=== PATIENT | female | born 1990 | race Caucasian/White ===

== ENCOUNTER → 2017-06-25 11:10 | Observation (INO) ==
[2017-06-25 10:39] LABS: Bilirubin,Urine Negative (Negative); Blood,Urine Small (Negative); Clarity,Urine Clear (Clear); Color,Urine Yellow (Yellow); Glucose,Urine (UA) Normal (Normal); Ketones,Urine Negative (Negative); Leukocyte Esterase,Urine Negative (Negative); Nitrite,Urine Negative (Negative); Protein,Urine Negative (Neg-Trace); Specific Gravity,Urine < 1.005 (1.010-1.025); Urobilinogen,Urine Normal (Normal)
[2017-06-25 10:44] LABS: Amphetamine Screen,Urine Negative ng/mL (Cutoff=1000); Barbiturate Screen,Urine Negative ng/mL (Cutoff=200); Benzodiazepines Screen,Urine Negative ng/mL (Cutoff=200); Cannabinoid Screen,Urine Negative ng/mL (Cutoff = 50); Cocaine Screen,Urine Negative ng/mL (Cutoff= 300); Opiate Screen,Urine Negative ng/mL (Cutoff=300); Phencyclidine Screen,Urine Negative ng/mL (Cutoff=25)
[2017-06-25 10:45] LABS: WBC,Urine 15-30 per hpf (0-3)
[2017-06-25 10:46] LABS: Bacteria,Urine Many per hpf (None-Few); Squamous Epithelial Cell,Urine Few per lpf (None-Few)
--- NOTE | 2017-06-25 11:13 | OB/GYN Progress Note ---
Date of Encounter: 06/25/17 Time of Encounter: 11:10 - Assessment and Plan (1) Vaginal bleeding during , antepartum Current Visit: Yes Status: Acute Patient with minimal vaginal bleeding. -Speculum exam shows minimal cervical bleeding. -Cervix is closed, thick, and high. -No evidence of membrane rupture. -Bleeding precautions given. Discharge home. FU in office. (2) 26 weeks gestation of Current Visit: Yes Status: Resolved Continue care. Subjective - Subjective Principal diagnosis: Second trimester vaginal bleeding Interval history: Ms. 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 She states she was at work, wiped, and saw a smear of blood on the toilet paper. Patient denies recent intercourse, or complications with this . Her last was a term delivery. She denies any abdominal pain, ARGUETA, visual disturbances, nausea or vomitting. She denies contractions and reports good movement. Antepartum ROS: vaginal bleeding, movement normal, no loss of fluid, no contractions Objective - Vital Signs Vital Signs: Intake and Output 06/24/17 06/25/17 06/25/17 23:59 07:59 15:59 Other: Weight 96 kg Patient Weight 06/25/17 23:59 Weight 96 kg - Exam FHR: category 1 FHR comments: Baseline FHT 140, 10x10 accelerations, moderate variability Auscultation: bilateral: normal Abdomen: Present: normal appearance, soft, gravid Uterus: Present: normal Cervical dilation: closed Cervix effacement: none station: -3 Comments: Speculum exam-minimal cervical bleeding. No fluid or discharge visualized in vagina. - Labs Labs: Abnormal lab results Ur Specific [place] < 1.005 (1.010-1.025) L 06/25/17 10:15 Urine Blood Small (Negative) H 06/25/17 10:15 Urine Microscopic RBC 3-5 per hpf (0-3) H 06/25/17 10:15 Urine Microscopic WBC 15-30 per hpf (0-3) H 06/25/17 10:15 Urine Bacteria Many per hpf (None-Few) H 06/25/17 10:15
== END | disposition home or self-care (01) ==
LOC: 1NENULAB
PROVIDERS: ADMIT Obstetrics & Gynecology; ATTEND Obstetrics & Gynecology

== ENCOUNTER 2017-09-03 18:38 | Inpatient (IN) ==
[2017-09-03] MEDS ORDERED: Famotidine 20 MG/2 ML VIAL IVP PRN (18:49)
[2017-09-03] MEDS ORDERED: Ondansetron 4 MG/2 ML VIAL IVP PRN (18:49)
[2017-09-03] MEDS ORDERED: Naloxone 0.4 MG/ML INJ IVP PRN (18:49)
[2017-09-03] MEDS ORDERED: Lidocaine 1% 20 ML MDV INFILT PRN (18:49)
--- NOTE | 2017-09-03 18:49 | OB/GYN History & Physical ---
Date of Encounter: 09/03/17 Time of Encounter: 19:40 Assessment and Plan (1) 36 weeks gestation of Current visit: Yes Status: Acute Plan: - + nitrazine test, + pooling, PPROM present - admit to L&D for induction of labor - and maternal toco - CBC and drug screen obtained - speculum exam performed and negative for herpetic lesions - Expectant management, begin induction with oral cytotec - anticipate normal (2) premature rupture of membranes (PPROM) with unknown onset of labor Current visit: Yes Status: Acute (3) History of herpes simplex type 2 infection Current visit: Yes Status: Acute History of Present Illness Chief complaint: ROM HPI: Ms. Alcantara is a 27 year old female at 36+5 weeks presented to L&D with complaints of leakage of fluids. Leakage of fluid occurred initially at 1400 today. Patient able to feel contractions. complicated by herpes simplex type 2. Patient has been taking Valtrex as scheduled without recent outbreak. Reports active movement. Patient denies vaginal bleeding. Denies N/V, changes in vision, ARGUETA. Allergy to morphine, reaction trouble breathing and hives. Patient follows up with Dr. Bates. PNL: Blood type A+, GBS neg, RI, HBsAG neg, HIV neg. RPR neg. Past Med Surg Social Fam HX - Past Medical History Source: patient, old records reviewed Medical history: non-contributory Psychiatric history: no psych history - Past Surgical History Surgical History: other (tonsillectomy, neck fusion ) - Social History Smoking Status: Never smoker Alcohol use: none Drug use: none - Family History Mother Living Status: Still Living Hx Family Cardiac Disorders: Yes (htn) Hx Family Endocrine Disorder: Yes (diabetes) Hx Family Psychosocial Disorders: Yes (depression) Obstetrical History - Pregnancies : 2 Para: 1 Term: 1 : 0 Ab's: 0 Livin - History/Complications History/Complications: Total pregnancies 2. Total living children 1. # 1: 14 39w3d,, normal spontaneous vaginal delivery (),male 7lbs 4oz bottle feeding "Lito". Medications and Allergies Vit No.124/Iron/FA [ Vitamin Tablet] 1 each PO DAILY 09/03/17 [ History] valACYclovir [Valtrex] 1,000 mg PO DAILY 09/03/17 [History] 3 Allergy/AdvReac Type Severity Reaction Status Date / Time morphine Allergy Difficulty Verified 03/28/17 06:41 Breathing propoxyphene Allergy "makes me Verified 03/28/17 06:41 [From Darvocet-N] high" sulfamethoxazole Allergy Rash Verified 03/28/17 06:41 [From Bactrim] trimethoprim [From Bactrim] Allergy Rash Verified 03/28/17 06:41 Review of System OB All systems PM: reviewed and no additional remarkable complaints except as stated Exam - Vital Signs Vital signs: wnl - Constitutional Constitutional: well developed, well nourished - HEENT HEENT: EOMI, PERRL - Neck Neck exam: full ROM - Lungs Respiratory exam: CTAB - Cardiovascular Cardiovascular exam: RRR - Abdomen Abdomen: Present: non tender - Extremities Extremities exam: normal inspection - Vulva Vulva: bilateral: normal - Vagina Vagina: Present: normal moisture, discharge (clear). Absent: ulceration - Cervix Dilation: 3 Effacement: 60 Station: -1 - Uterus Uterus exam: Present: normal size Results Result Diagrams: 09/03/17 19:00 All other labs normal. - Attending Attestation I examined this patient and my medical decision-making was reviewed with the Resident Physician. I agree with the documented findings, disposition and treatment plan as described. Koki Jain CNM
[2017-09-03] MEDS ORDERED: Ringers Solution, Lactated 1,000 ML IVC SCH (19:00)
[2017-09-03 19:13] LABS: Basophils % 0.2 %; Eosinophils # 0.1 K/mcL (0.0-0.6); Eosinophils % 0.8 %; Hematocrit 40.3 % (35.3-44.9); Hemoglobin 13.5 g/dL (11.5-15.4); Immature Granulocytes % 0.9 % (0-4); Lymphocytes # 2.5 K/mcL (0.6-4.6); Lymphocytes % 19.1 %; Mean Corpuscular HGB Conc 33.5 g/dL (31.6-35.5); Mean Corpuscular Volume 86.7 fL (83.0-100.0); Mean Platelet Volume 9.6 fL (9.4-12.4); Monocytes # 0.6 K/mcL (0.0-1.3); Monocytes % 4.5 %; Neutrophils # 9.5 K/mcL (1.6-8.9); Platelet Count 330 K/mcL (140-400); Red Blood Count 4.65 M/mcL (3.82-4.97); Red Cell Distribution Width 13.5 % (11.5-14.5); Segmented Neutrophils % 74.5 %
[2017-09-03 19:14] LABS: Bilirubin,Urine Negative (Negative); Blood,Urine Negative (Negative); Clarity,Urine Clear (Clear); Color,Urine Yellow (Yellow); Glucose,Urine (UA) Normal (Normal); Ketones,Urine Negative (Negative); Leukocyte Esterase,Urine Negative (Negative); Nitrite,Urine Negative (Negative); Protein,Urine Negative (Neg-Trace); Specific Gravity,Urine 1.005 (1.010-1.025); Urobilinogen,Urine Normal (Normal)
[2017-09-03 19:21] LABS: Amphetamine Screen,Urine Negative ng/mL (Cutoff=1000); Barbiturate Screen,Urine Negative ng/mL (Cutoff=200); Benzodiazepines Screen,Urine Negative ng/mL (Cutoff=200); Cannabinoid Screen,Urine Negative ng/mL (Cutoff = 50); Cocaine Screen,Urine Negative ng/mL (Cutoff= 300); Opiate Screen,Urine Negative ng/mL (Cutoff=300); Phencyclidine Screen,Urine Negative ng/mL (Cutoff=25)
[2017-09-03] MEDS ORDERED: *HR* FentaNYL (PF) 100 MCG/2 ML VIAL IVP PRN (20:25)
[2017-09-03] MEDS: miSOPROStol 25 MCG TABLET PO PRN (20:40)
[2017-09-04] MEDS: miSOPROStol 25 MCG TABLET PO PRN (01:14)
[2017-09-04] MEDS ORDERED: Ringers Solution, Lactated 500 ML IVC ONE (03:21)
[2017-09-04] MEDS ORDERED: EPHEDrine 50 MG/ML VIAL IVP PRN (03:22)
[2017-09-04] MEDS ORDERED: Epidural Premix (fent/bupiv) 110 ML EP ONE (03:25)
[2017-09-04] MEDS ORDERED: Epidural Premix (fent/bupiv) 110 ML EP SCH (03:30)
--- NOTE | 2017-09-04 03:59 | Anesthesia Evaluation PreOp ---
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 (neck fusion at age 15 d/t leaking fluid) Other Medical History: Denies Any Significant HX Anesthesia History: No Prior Anesthetic Complications, Past Anesthesia : Yes (36.5) Alcohol Use: none Drug use: none Medications and Allergies Vit No.124/Iron/FA [ Vitamin Tablet] 1 each PO DAILY 09/03/17 [ History] valACYclovir [Valtrex] 1,000 mg PO DAILY 09/03/17 [History] 3 Allergy/AdvReac Type Severity Reaction Status Date / Time morphine Allergy Difficulty Verified 03/28/17 06:41 Breathing propoxyphene Allergy "makes me Verified 03/28/17 06:41 [From Darvocet-N] high" sulfamethoxazole Allergy Rash Verified 03/28/17 06:41 [From Bactrim] trimethoprim [From Bactrim] Allergy Rash Verified 03/28/17 06:41 - Meds/Allergy Pre-op Review Medications Reviewed: Yes Allergies Reviewed: Yes Beta Blockers on Current Med List: No Anesthesia Results - Labs 09/03/17 19:00 Anesthesia Exam Height: 1.68m Weight: 98kg NPO (# of Hours): 6 Pain Scale: 9 Pain Scale Used: Numeric (1 - 10) - HEENT Pupil (Motor): Pupils equal Mallampati: II Teeth: Normal Oral Opening: Greater than 3 - BOBTAILER LOC: Oriented BOBTAILER Motor: Normal RUE, Normal LUE, Normal RLE, Normal LLE, Normal Face BOBTAILER Sensory: Normal: RUE, LUE, RLE, LLE, Face - Cardiac Rhythm: Regular Murmur: None JVD: No Carotid Bruit: No - Pulmonary Breath Sounds: bilateral Clear Respiratory Effort: Symmetrical Anesthesia Assess/Plan ASA Score: 2 Modified [place] Scale for Level of Consciousness: Cooperative, oriented, and tranquil Anesthetic Plan: General (plan b), Regional (plan a) Autologous Blood: Yes Monitoring Plan: Standard Monitors
[2017-09-04] MEDS ORDERED: Oxytocin 20 units/ LR 1000 mL 20 UNIT/1,000 ML BAG IVC SCH ×2 (04:00→08:23)
--- NOTE | 2017-09-04 04:02 | Anesthesia Procedures ---
Date of Encounter: 09/04/17 Time of Encounter: 04:00 Procedures: Anesthesia - Epidural/Spinal Patient ID/Chart reviewed: Yes Patient examined: Yes OB Eval: Gestational age: 36.5 OB Eval: : 2 OB Eval: Hx Para: 1 OB Eval: Dilated at (cm): 4 OB Eval: Contractions: Non-stressed pattern Consent Obtained: Yes Supplemental Oxygen: None/Room Air Site Prep: Aseptic Technique, Sterile prep and drape, Povidone-Iodine 1% Patient position: upright Local Anesthetic: Lidocaine 1% Amount of Local Anesthetic used: 3 Touhy Needle Gauge: 18 Touhy Needle Depth (cm): 9 Catheter Depth at Skin (cm): 20 Test Dose (1.5% Lido + Epi): Volume given (mls): 5 Test Dose Result: Negative Loading Dose: Other: 10mls of epidural pharm bag premix solution Loading Dose Administered: Thru Catheter Infusion Med: 0.125% Bupivacaine w/ 2 mcg/ml Fentanyl Infusion Rate (mls/hr): [address]: Tegaderm, Tape Interspace Used: L3-L4 Loss of Resistance (MARLEE): Yes Blood: No CSF: No Paresthesia: No Procedure: pt tolerated procedure well. no complications. vss. fhr stable.
--- NOTE | 2017-09-04 04:06 | OB Labor Progress Note ---
Date of Encounter: 09/04/17 Time of Encounter: 04:03 Labor Progress Note - Subjective Subjective: Patient laying in bed recovering from epidural. Still breathing through contractions. Patient c/o contractions every 10 minutes. - Vital Signs Vital Signs: VSS - Cervix Cervix: 4/90/0 - Heart Tones Heart Tones: 135 moderate variability - [place]: Contractions every 3-5 minutes - Interventions Interventions: Forebag ruptured and IUPC placed without difficulty. Fetus and patient tolerated well. - Plan Plan: Continue routine labor management GBS negative Pain control with epidural Start pitocin after 4 hours from last dose of cytotec Anticipate vaginal delivery POC per consult with Dr Morris.
--- NOTE | 2017-09-04 06:09 | OB/GYN Procedure Note ---
Delivery - Delivery Date: 09/04/17 Provider: Bree Jain Intrapartum events: none Delivery induction: none Delivery augmentation: pitocin Delivery monitor: external FHT, external uterine, internal uterine Anesthesia: epidural Estimated Blood Loss: 150 - Infant (s) Infant A Delivery Date: 09/04/17 Infant Delivery Time: 05:47 Presentation: vertex Position: WON Route of delivery: Gender: Female Viability: Viable Pounds: 6 Ounces: 5 Weight Gram: 2.88 kg at 1 minute: 9 at 5 mins: 9 Shoulder Dystocia: not encountered Placenta: spontaneous Cord: 3 umbilical vessels - Repair Episiotomy: none Laceration Description: Periurethral (right ) - Complications Delivery complications: none Delivery comments: of vigorous viable female infant in the WON position. No nuchal. No meconium. Shoulders delivered easily. No shoulder dystocia. Infant placed on mom 's belly. Apgars 9/9 at 1 and 5 minutes. Cord double clamped and cut after pulsations ceased. Placenta delivered spontaneously appears grossly intact. 3 vessel cord present. Upon perineal inspection, ~1cm right periurethral laceration hemostatsic, stable and left to heal by second intention. Fundus firm and at u/2. EBL 150ml. delivery attended by Dr. Kristine Lee. Pau Jain CNM present in room for delivery. Dr. Morris notified. Infant and mother stable in recovery. Pericare instructions given to patient. - Disposition Mom disposition: stable in LDR [place] disposition: stable in LDR
[2017-09-04] MEDS ORDERED: Sennosides 8.6 MG TABLET PO PRN (08:23)
[2017-09-04] MEDS ORDERED: Benzocaine/Menthol 56 GM AEROSOL SPRAY TP PRN (08:23)
[2017-09-04] MEDS ORDERED: Acetaminophen 325 MG TABLET PO PRN (08:23)
[2017-09-04] MEDS ORDERED: Oxytocin 20 units/ LR 1000 mL 20 UNIT/1,000 ML BAG IVC ONE (08:23)
[2017-09-04] MEDS: Ibuprofen 600 MG TABLET PO PRN ×2 (09:11→20:40)
[2017-09-04] MEDS: Prenatal Vit/FA 1 EACH TABLET PO SCH (09:12)
--- NOTE | 2017-09-05 07:04 | Discharge Summary ---
Date of Encounter: 09/05/17 Time of Encounter: 07:49 - Discharge Diagnosis (1) 36 weeks gestation of Priority: Secondary Status: Resolved (2) premature rupture of membranes (PPROM) with unknown onset of labor Priority: Secondary Status: Resolved (3) History of herpes simplex type 2 infection Priority: Secondary Status: Chronic (4) Vaginal delivery Priority: Primary Status: Acute Comments: Pt meeting milestones. (5) Contraceptive education Priority: Secondary Status: Acute Comments: Pt declines contraception at this time. She is planning to have a tubal ligation in 4-6 weeks. - Discharge Medications Prescriptions: Acetaminophen [Tylenol] 650 mg PO Q6HR PRN #40 tablet PRN Reason: Mild Pain Ibuprofen [Motrin] 600 mg PO Q6HR PRN #40 tablet PRN Reason: Cramping Docusate [Colace] 100 mg PO BID #10 capsule Home Medications: Vit No.124/Iron/FA [ Vitamin Tablet] 1 each PO DAILY 09/03/17 [ History] valACYclovir [Valtrex] 1,000 mg PO DAILY 09/03/17 [History] Acetaminophen [Tylenol] 650 mg PO Q6HR PRN #40 tablet 09/05/17 [Rx] Benzocaine/Menthol [place] [Dermoplast [place]] 1 appl TP QID PRN aerosol 09/05/17 [Rx] Docusate [Colace] 100 mg PO BID #10 capsule 09/05/17 [Rx] Ibuprofen [Motrin] 600 mg PO Q6HR PRN #40 tablet 09/05/17 [Rx] Allergies/Adverse Reactions: 3 Allergy/AdvReac Type Severity Reaction Status Date / Time morphine Allergy Difficulty Verified 03/28/17 06:41 Breathing propoxyphene Allergy "makes me Verified 03/28/17 06:41 [From Darvocet-N] high" sulfamethoxazole Allergy Rash Verified 03/28/17 06:41 [From Bactrim] trimethoprim [From Bactrim] Allergy Rash Verified 03/28/17 06:41 Data Procedures and tests throughout hospitalization: Laboratory Tests 09/03/17 09/03/17 09/03/17 18:48 18:48 19:00 WBC 12.8 H RBC 4.65 Hgb 13.5 Hct 40.3 MCV 86.7 MCH 29.0 MCHC 33.5 RDW 13.5 Plt Count 330 MPV 9.6 Immature Gran % 0.9 Seg Neutrophils % 74.5 Lymphocytes % 19.1 Monocytes % 4.5 Eosinophils % 0.8 Basophils % 0.2 Neutrophils # 9.5 H Lymphocytes # 2.5 Monocytes # 0.6 Eosinophils # 0.1 Basophils # 0.0 Urine Color Yellow Urine Clarity Clear Urine pH 6.0 Ur Specific [place] 1.005 L Urine Protein Negative Urine Glucose (UA) Normal Urine Ketones Negative Urine Blood Negative Urine Nitrite Negative Urine Bilirubin Negative Urine Urobilinogen Normal Ur Leukocyte Esterase Negative Ur Culture Indicated? NO Urine Opiates Screen Negative Ur Barbiturates Screen Negative Ur Phencyclidine Scrn Negative Ur Amphetamines Screen Negative U Benzodiazepines Scrn Negative Urine Cocaine Screen Negative U Marijuana (THC) Screen Negative Date of admission: 09/03/17 18:38 Discharging clinician: Radha [place] Anticipated date of discharge: 09/05/17 - Patient Status Disposition: Home, Self-Care Condition: Good Functional capacity at discharge: independent ambulation Overall status at discharge: patient is progressing back to baseline - Discharge Instructions - Diet and Activity Activity: increase activity as tolerated Diet: advance to your usual diet Hospital Course Reason for admission: active labor (PPROM) Episiotomy: none Laceration: vaginal side wall Other procedures: none complications: none Discharge diagnosis: IUP at term delivered [place] baby: female Hospital course: - Delivery Date: 09/04/17 Provider: Bree Jain Intrapartum events: none Delivery induction: none Delivery augmentation: pitocin Delivery monitor: external FHT, external uterine, internal uterine Anesthesia: epidural Estimated Blood Loss: 150 - Infant (s) A Delivery Date: 09/04/17 Infant Delivery Time: 05:47 Presentation: vertex Position: WON Route of delivery: Gender: Female Viability: Viable Pounds: 6 Ounces: 5 Weight Gram: 2.88 kg at 1 minute: 9 at 5 mins: 9 Shoulder Dystocia: not encountered Placenta: spontaneous Cord: 3 umbilical vessels - Repair Episiotomy: none Laceration Description: Periurethral (right ) - Complications Delivery complications: none Delivery comments: of vigorous viable female in the WON position. No nuchal. No meconium. Shoulders delivered easily. No shoulder dystocia. Infant placed on mom 's belly. Apgars 9/9 at 1 and 5 minutes. Cord double clamped and cut after pulsations ceased. Placenta delivered spontaneously appears grossly intact. 3 vessel cord present. Upon perineal inspection, ~1cm right periurethral laceration hemostatsic, stable and left to heal by second intention. Fundus firm and at u/2. EBL 150ml. Infant delivery attended by Dr. Kristine Lee. Pau Jain CNM present in room for delivery. Dr. Morris notified. Infant and mother stable in recovery. Pericare instructions given to patient. - Disposition Mom disposition:stable in . No complications. Patient's vitals wnl. +void, appetite good, ambulating well. Patient stable and ready for discharge. f/u appointment in 4 weeks. Time Attestation: Total time spent providing and/or coordinating discharge services: Exam - Constitutional Vitals: Temp Pulse Resp BP Pulse Ox 97.9 F 75 16 111/79 97 09/05/17 04:50 09/05/17 04:50 09/05/17 04:50 09/05/17 04:50 09/05/17 04:50
[2017-09-05 08:39] VITALS: BP 118/82
[2017-09-05] MEDS: Prenatal Vit/FA 1 EACH TABLET PO SCH (09:26)
== END 2017-09-05 13:15 | disposition home or self-care (01) | DRG 774 ==
LOC: 1NENULAB → 1NENUOBS 09-04 08:23
PROVIDERS: ADMIT Advanced Practice Midwife; ATTEND Advanced Practice Midwife